=== PATIENT | male | born 1955 | race Caucasian/White ===

== ENCOUNTER 2017-08-26 14:00 | Emergency (ER) | payer OTHER, MEDICAID ==
[2017-08-26 14:16] VITALS: BMI 16.1
[2017-08-26] MEDS ORDERED: MORPHINE SULFATE INJ 4 MG IVP ONE (14:40)
[2017-08-26] MEDS ORDERED: NS 1000 ML 1,000 ML ONE (14:42)
[2017-08-26] MEDS ORDERED: MORPHINE SULFATE INJ 4 MG ONE (14:43)
--- NOTE | 2017-08-26 14:43 | DR.EXTPAIN ---
HPI - Time seen Time seen: 14:10 - PCP Primary Care Physician: carmencita - Complaint/Symptoms Chief Complaint Doctor Comments: Patient admits to having pain in right hip since falling today. He also reports that he has a runny nose secondary to no heat the past few days. Chief Complaint:: Patient c/o pain to right hip s/p fall.Patient states "I think I tripped over the oxygen tank. I have been falling alot lately. As long as I am still my hip doesn't hut but as soon as I move. It hurts alot." - Source History Provided: Patient - Mode of arrival Mode of Arrival: EMS - Timing Onset of Chief Complaint: 08/26/17 PMH - PMH Past Medical History: Yes Past Medical History: CHF, COPD, Coronary Artery Disease, Hypertension Past Surgical History: Yes Past Surgical History Comment: pacemaker/defib - Family History History of Family Medical Conditions: Yes Family Medical History: Coronary Artery Disease, Hypertension - Social History Does patient currently use any type of tobacco product: Yes Have you used tobacco products in the last 12 months: Yes Type of Tobacco Use: Cigarettes Alcohol Use: Occasionally Lives Where: Home - infectious screening In the last 2 months have you had wt loss of >10#?: NO Have you had fever, night sweats or hemotysis?: No Have you traveled outside the country in the last 6 months?: No Isolation: Standard ROS - Review of Systems Eyes: No Symptoms Reported ENTM: No Symptoms Reported Respiratoy: No Symptoms Reported Cardiovascular: No Symptoms Reported Gastrointestinal/Abdominal: No Symptoms Reported Genitourinary: No Symptoms Reported Neurological: No Symptoms Reported Musculoskeletal: Hip (right) Integumentary: No Symptoms Reported Hematologic/Lymphatic: No Symptoms Reported Endocrine: No Symptoms Reported Psychiatric: No Symptoms Reported All Other Systems: Reviewed and Negative PE - Vital Signs Vitals: Temperature 101.4 F Pulse Rate 123 Respiratory Rate 20 Blood Pressure 140/79 O2 Sat by Pulse Oximetry 97 - General Limitations: No Limitations General Appearance: Alert, In No Apparent Distress - Head Head Exam: Normal Inspection, Atraumatic - Eyes Eye exam: Normal Appearance, PERRL, EOMI - ENT ENT Exam: Normal Exam (bilateral rhinorrhea) - Neck Neck Exam: Normal Inspection, Full ROM - Chest Chest Inspection: Normal Inspection, Symmetric Chest Wall Rise - Respiratory Respiratory Exam: Normal Lung Sounds Bilat Respiratory Exam: Bilateral Clear to Auscultation - Cardiovascular Cardiovascular Exam: Regular Rate - Abdominal Exam Abdominal Exam: Normal Inspection, Normal Bowel Sounds Abdominal Tenderness: RUQ, RLQ, LUQ, LLQ, Epigastrium, Suprapubic, Diffuse, Mild , Moderate, Severe, Other - Extremities Extremities Exam: Tenderness (right hip; external rotation pain) - Upper Extremities Shoulder Exam: Normal Inspection Arm Exam: Normal Inspection Elbow Exam: Normal Inspection Forearm Exam: Normal Inspection Hand Exam: Normal Inspection Neuromotor Exam: Normal Exam Neurosensory Exam: Normal Exam Hand Tendon Exam: Flexor Digitorium Profundus (Location) Upper Ext. Vascular Exam: Capillary Refill - Lower Extremities Hip/Pelvis Exam: Normal Inspection Upper Leg Exam: Normal Inspection Knee Exam: Normal Inspection Lower Leg Exam: Normal Inspection Ankle Exam: Normal Inspection Foot/Toe Exam: Normal Inspection Neurovascular/Tendon Exam: Normal Capillary Refill Gait Exam: Unable to bear weight - Back Back Exam: Normal Inspection - Neurological Neurological Exam: Alert, Oriented X3, CN II-XII Intact - Psychiatric Psychiatric Exam: Normal Affect - Skin Skin Exam: Warm, Dry, Intact Course - Reevaluation 1st: Unchanged ROR - Labs Reviewed Laboratory: Influenza Type A (PCR) Negative (NEGATIVE) 08/26/17 15:07 Influenza Type B (PCR) Negative (NEGATIVE) 08/26/17 15:07 - XRAY XRAY Interpreted by: Radiologist (Hip: Supine view of the pelvis and frog leg view of the right hip were obtained. The hips are normal and symmetric in appearance. Plate and screws along the right femoral shaft are noted. No fracture or bony destructive process is seen.) - Diagnosis Discharge Problem: Pain of right hip - Discharge Plan Condition: Stable - Follow ups/Referrals Follow ups/Referrals: JASMYN GARCIA [Primary Care Provider] - 3 days - Instructions
[2017-08-26] MEDS ORDERED: NS 1000 ML 1,000 ML IV SCH (15:00)
--- NOTE | 2017-08-26 15:17 | RAD ---
History: Fall with right hip pain Study: Right hip two views Findings: Supine view of the pelvis and frog-leg view of the right hip were obtained. The hips are no rmal and symmetric in appearance. Plate and screws along the right femoral shaft are noted. No fractu re or bony destructive process is seen. Impression: Normal right hip . Reported By:
[2017-08-26 16:43] VITALS: BP 137/84
== END 2017-08-26 16:43 | disposition home or self-care (01) ==
LOC: ER 14:06
DX: M25.551 Pain in right hip (principal)
CPT/HCPCS: 73501; 87502; 96365; 96367; 96374; 99283; A4222; J2270

== ENCOUNTER → 2018-01-11 | Outpatient (CLI) | payer OTHER, MEDICAID ==
[2018-01-11 12:31] LABS: BASOPHILS # (AUTO) 0.1 X10^3/uL (0.0-0.1); BASOPHILS % (AUTO) 1.1 % (0.2-1.0); EOSINOPHILS # (AUTO) 0.3 x10^3/uL (0.0-0.2); EOSINOPHILS % (AUTO) 3.5 % (0.9-2.9); HEMATOCRIT 39.7 % (42.0-54.0); HEMOGLOBIN 13.8 g/dL (13.5-18.0); LYMPHOCYTES # (AUTO) 1.6 X10^3/uL (1.3-2.9); LYMPHOCYTES % (AUTO) 18.2 % (21.0-51.0); MEAN CORPUSCULAR HEMOGLOBIN 33.4 pg (27.0-34.0); MEAN CORPUSCULAR HGB CONC 34.8 g/dL (33.0-35.0); MEAN CORPUSCULAR VOLUME 95.8 fL (80.0-100.0); MEAN PLATELET VOLUME 8.4 fL (7.4-11.0); MONOCYTES # (AUTO) 0.7 x10^3/uL (0.3-0.8); MONOCYTES % (AUTO) 7.4 % (0.0-13.0); NEUTROPHILS # (AUTO) 6.3 x10^3/uL (2.2-4.8); NEUTROPHILS % (AUTO) 69.8 % (42.0-75.0); PLATELET COUNT 252 X10^3/uL (150.0-450.0); RED BLOOD COUNT 4.14 X10^6/uL (4.7-6.0); RED CELL DISTRIBUTION WIDTH 14.7 % (11.6-16.5)
[2018-01-11 12:53] LABS: ALANINE AMINOTRANSFERASE 24 Units/L (12-78); ALBUMIN 3.3 g/dL (3.4-5.0); ALKALINE PHOSPHATASE 141 Units/L (46-116); ASPARTATE AMINO TRANSFERASE 30 Units/L (15-37); BLOOD UREA NITROGEN 11 mg/dL (7-18); CALCIUM 7.9 mg/dL (8.5-10.1); CARBON DIOXIDE 29.5 mmol/L (21-32); CHLORIDE 101 mmol/L (98-107); COR CA(FOR HYPOALB) 8.5 mg/dL (8.5-10.1); CREATININE 0.97 mg/dL (0.70-1.30); SODIUM 136 mmol/L (136-145); TOTAL PROTEIN 7.2 g/dL (6.4-8.2); TSH (3RD GENERATION) 1.261 uIU/mL (0.358-3.74); eGFR BLACK RACES > 60 (>60); eGFR NON BLACK RACES > 60 (>60)
== END ==
LOC: LAB 11:57
PROVIDERS: ATTEND Obstetrics & Gynecology Obstetrics
DX: R27.0 Ataxia, unspecified (principal); M62.81 Muscle weakness (generalized)
CPT/HCPCS: 36415; 80053; 84425; 84443; 85025